=== PATIENT | female | born 1985 | race Caucasian/White ===

== ENCOUNTER 2024-07-03 07:19 | Emergency (ER) | payer BC, OTHER ==
[2024-07-03] MEDS: Ketorolac 30 MG/ML SDV IM ONE (07:57)
[2024-07-03 08:21] VITALS: BP 127/85; PULSE 78
== END 2024-07-03 08:06 | disposition home or self-care (01) ==
LOC: KA.ED 07:19
DX: M53.3 Sacrococcygeal disorders, not elsewhere classified (principal); M54.50 Low back pain, unspecified; E66.9 Obesity, unspecified; J45.909 Unspecified asthma, uncomplicated; Z79.899 Other long term (current) drug therapy; Z68.34 Body mass index [BMI] 34.0-34.9, adult
CPT/HCPCS: 96372; 99283; J1885